=== PATIENT | female | born 1985 | race Caucasian/White ===

== ENCOUNTER 2017-02-05 17:53 | Outpatient (CLI) | payer OTHER ==
[~2017-02-05] VITALS: Ht 170.2 cm; Wt 85.9 kg
[~2017-02-05 17:53] MED LIST: IBUP-1222 PO; PREN1TAB27 PO
[2017-02-05 18:12] VITALS: BP 128/83
[2017-02-05 18:58] LABS: AMNI OBC PASS; AMNISURE NEGATIVE (NEGATIVE)
== END 2017-02-05 19:56 | disposition home or self-care (01) ==
LOC: LDOP 17:53
PROVIDERS: ATTEND Obstetrics & Gynecology
DX: O42.913 Preterm premature rupture of membranes, unspecified as to length of time between rupture and onset of labor, third trimester (principal); Z3A.36 36 weeks gestation of pregnancy
CPT/HCPCS: 59025; 84112; 99211; G0463

== ENCOUNTER 2017-02-19 23:21 | Inpatient (IN) | payer OTHER ==
[~2017-02-19] VITALS: Ht 170.2 cm; Wt 86.2 kg
[2017-02-19] MEDS ORDERED: LACTATED RINGERS 1,000 ML IV SCH (23:26)
[2017-02-19] MEDS ORDERED: D5%-LACTATED RINGERS 1,000 ML IV SCH (23:26)
[2017-02-19] MEDS ORDERED: OXYTOCIN 30U/ 0.9% NaCL 500ML 500 ML IV ONE (23:26)
[2017-02-19] MEDS ORDERED: CALCIUM CARBONATE 500 MG TAB.CHEW PO PRN (23:30)
[2017-02-19] MEDS ORDERED: METOCLOPRAMIDE 5 MG/ML, 2ML IVPush PRN (23:30)
[2017-02-19] MEDS ORDERED: SODIUM CITRATE/CITRIC ACID 30 ML UDC PO PRN (23:30)
[2017-02-19] MEDS ORDERED: TERBUTALINE 1 MG/ML, 1ML IVPush PRN (23:30)
[2017-02-19] MEDS ORDERED: NEWBORN KIT ONE (23:30)
[2017-02-19] MEDS ORDERED: ONDANSETRON 2MG/ML, 2ML IVPush PRN (23:30)
[2017-02-19] MEDS ORDERED: FENTANYL PF 100 MCG/2ML IVPush PRN (23:30)
[2017-02-19] MEDS ORDERED: FENTANYL PF 100 MCG/2ML IV PRN (23:30)
[2017-02-19] MEDS ORDERED: OXYTOCIN 30U/ 0.9% NaCL 500ML 500 ML ONE (23:31)
[2017-02-19] MEDS ORDERED: CARBOPROST TROMETHAMINE 250 MCG/ML, 1ML IM ONE (23:37)
[2017-02-19] MEDS ORDERED: PLEASE ENTER HEIGHT AND WEIGHT MC SCH (23:45)
[2017-02-19 23:55] LABS: HEMATOCRIT 33.8 % (34.6-47.8); HEMOGLOBIN 11.2 g/dL (11.7-16.4); WHITE BLOOD COUNT 9.5 x10^3/uL (3.4-10)
[2017-02-20] MEDS ORDERED: FENTANYL/BUPIV./NS/PF 250 ML EPIDCONT ONE (00:05)
[2017-02-20 00:07] VITALS: BP 127/83
[2017-02-20] MEDS ORDERED: LACTATED RINGERS 1,000 ML IV SCH (00:39)
[2017-02-20] MEDS ORDERED: FENTANYL/BUPIV./NS/PF 250 ML EPIDCONT SCH (00:39)
[2017-02-20] MEDS ORDERED: ONDANSETRON 2MG/ML, 2ML ONE (00:51)
[2017-02-20] MEDS ORDERED: LACTATED RINGERS 1,000 ML IVBOLUS PRN (01:00)
[2017-02-20] MEDS: OXYTOCIN 30U/ 0.9% NaCL 500ML 500 ML IV SCH ×3 (03:20→23:20)
[2017-02-20] MEDS ORDERED: ONDANSETRON 2MG/ML, 2ML IV PRN (03:30)
[2017-02-20] MEDS ORDERED: MEASLES,MUMPS&RUBELLA VACC/PF 0.5 ML SQ PRN (03:30)
[2017-02-20] MEDS ORDERED: DIPH,PERTUSS(ACELL),TET VAC/PF NC IM-VACC PRN (03:30)
[2017-02-20] MEDS ORDERED: MISOPROSTOL 200 MCG TABLET PR PRN (03:30)
[2017-02-20] MEDS ORDERED: GLYCERIN ADULT SUPP PR PRN (03:30)
[2017-02-20] MEDS ORDERED: METHYLERGONOVINE 0.2 MG/ML IM PRN (03:30)
[2017-02-20] MEDS ORDERED: BISACODYL 10 MG SUPP PR PRN (03:30)
[2017-02-20] MEDS ORDERED: MAGNESIUM HYDROXIDE 8%, 30ML UDC PO PRN (03:30)
[2017-02-20] MEDS ORDERED: ACETAMINOPHEN 325 MG TABLET PO PRN ×3 (03:30)
[2017-02-20] MEDS ORDERED: OXYcodone/APAP 5/325MG TABLET PO PRN (03:30)
[2017-02-20] MEDS ORDERED: CALCIUM CARBONATE 500 MG TAB.CHEW PO PRN (03:30)
[2017-02-20 05:00] VITALS: BP 117/71
[2017-02-20] MEDS ORDERED: PRENATAL VIT/IRON/FA 1 EACH TABLET ONE (07:34)
[2017-02-20] MEDS: PRENATAL VIT/IRON/FA 1 EACH TABLET PO SCH (07:35)
[2017-02-20] MEDS: IBUPROFEN 600 MG TABLET PO PRN ×3 (07:36→23:42)
[2017-02-20] MEDS: DOCUSATE 100 MG CAPSULE PO PRN ×2 (07:36→23:42)
[2017-02-20 08:15] VITALS: BP 115/73
[2017-02-20 11:01] LABS: HEMATOCRIT 32.1 % (34.6-47.8); HEMOGLOBIN 10.6 g/dL (11.7-16.4); WHITE BLOOD COUNT 14.6 x10^3/uL (3.4-10)
[2017-02-20 12:00] VITALS: BP 115/70
[2017-02-20] MEDS: OXYcodone/APAP 5/325MG TABLET PO PRN ×3 (12:10→23:42)
[2017-02-20 16:00] VITALS: BP 111/68
[2017-02-20 19:48] VITALS: BP 115/68
[2017-02-21] MEDS: IBUPROFEN 600 MG TABLET PO PRN (06:20)
[2017-02-21 07:15] VITALS: BP 108/62
[2017-02-21] MEDS: PRENATAL VIT/IRON/FA 1 EACH TABLET PO SCH (08:14)
[2017-02-21] MEDS: DOCUSATE 100 MG CAPSULE PO PRN (08:14)
[2017-02-21] MEDS: OXYTOCIN 30U/ 0.9% NaCL 500ML 500 ML IV SCH (09:20)
[2017-02-21] MEDS ORDERED: OXYC-302 PO (09:42)
[2017-02-21] MEDS ORDERED: IBUP-1222 PO (09:42)
[2017-02-21] MEDS ORDERED: IBUP-1223 PO (09:45)
== END 2017-02-21 12:05 | disposition home or self-care (01) | DRG 775 ==
LOC: LDOP 23:21 → LDIP 23:34 → 2NW 02-20 04:58
PROVIDERS: ADMIT Obstetrics & Gynecology; ATTEND Obstetrics & Gynecology
PROC: 0KQM0ZZ Repair Perineum Muscle, Open Approach (ICD-10-PCS; principal; 2017-02-20)
PROC: 10E0XZZ Delivery of Products of Conception, External Approach (ICD-10-PCS; 2017-02-20)
PROC: 3E0R3BZ Introduction of Anesthetic Agent into Spinal Canal, Percutaneous Approach (ICD-10-PCS; 2017-02-20)
PROC: 00HU33Z Insertion of Infusion Device into Spinal Canal, Percutaneous Approach (ICD-10-PCS; 2017-02-20)
DX: O69.81X0 Labor and delivery complicated by cord around neck, without compression, not applicable or unspecified (principal); O70.1 Second degree perineal laceration during delivery; Z37.0 Single live birth; Z3A.38 38 weeks gestation of pregnancy
CPT/HCPCS: 36415; 85025; 86850; 86900; J2405; J3010; J7120